=== PATIENT | female | born 1990 | race Caucasian/White ===

== ENCOUNTER 2019-02-04 00:28 | Outpatient (CLI) | payer OTHER ==
[2019-02-04 01:04] LABS: APPEARANCE,URINE CLOUDY; BILIRUBIN,URINE NEGATIVE (NEGATIVE); COLOR,URINE YELLOW; GLUCOSE, URINE NEGATIVE (NEGATIVE); KETONES,URINE NEGATIVE (NEGATIVE); LEUKOCYTE ESTERASE,URINE NEGATIVE (NEGATIVE); NITRITE,URINE NEGATIVE (NEGATIVE); PROTEIN,URINE NEGATIVE (NEGATIVE); UROBILINOGEN,URINE NEGATIVE mg/dL (<2.0)
[2019-02-04 01:18] LABS: URINE AMPHETAMINES SCREEN NEGATIVE; URINE BARBITURATES SCREEN NEGATIVE; URINE BENZODIAZEPINES SCREEN NEGATIVE; URINE COCAINE SCREEN NEGATIVE; URINE MARIJUANA (THC) SCREEN NEGATIVE; URINE METHADONE SCREEN NEGATIVE; URINE PHENCYCLIDINE SCREEN NEGATIVE
[2019-02-04] MEDS ORDERED: NALBUPHINE HCL INJ 10 MG/1 ML AMPULE ONE (01:32)
[2019-02-04] MEDS ORDERED: NALBUPHINE HCL INJ 10 MG/1 ML AMPULE IM ONE (01:35)
--- NOTE | 2019-02-04 02:13 | Non Stress Test Report ---
Non Stress Test Datetime Report Generated by CPN: 02/04/2019 02:13 DEMOGRAPHIC EGA NST: 40.2 INDICATION Indication for Study: Ordered by Provider Indication for Study (NST) Other: LC URINE RESULTS Urine Protein, NST: Negative Urine Ketones - NST: Negative Urine Glucose - NST: Negative Urine Blood - NST: Negative MONITORING Monitor Explained: Monitor Explained; Test Explained; Patient Verbalized Understanding Time on Monitor: 02/04/2019 00:48 Time off Monitor: 02/04/2019 01:29 NST Duration: 41 NST INTERVENTIONS NST Interventions: PO Hydration Physician Notified NST: Dr. Younger BABY A: [id number] BABY A Movement : Present Contraction Frequency : x2 FHR Baseline : 135 Accelerations : 15X15 Decelerations : None Variability : Moderate 6-25bpm NST Review: Meets Criteria for Reactive NST NST Review and Verified By : George GARCIAT Results: Reactive NST REPORT Report Trigger: Send Report
== END 2019-02-04 01:50 | disposition home or self-care (01) ==
LOC: LC 00:28
PROVIDERS: ATTEND Obstetrics & Gynecology
PROC: 4A1HXCZ Monitoring of Products of Conception, Cardiac Rate, External Approach (ICD-10-PCS; principal; 2019-02-04)
DX: O48.0 Post-term pregnancy (principal); Z3A.40 40 weeks gestation of pregnancy
CPT/HCPCS: 59025; 81005; 80307; J2300

== ENCOUNTER 2019-02-07 02:56 | Inpatient (IN) | payer OTHER ==
[2019-02-07] MEDS ORDERED: RINGERS SOLUTION,LACTATED 1,000 ML IV PRN (04:56)
[2019-02-07] MEDS ORDERED: PENICILLIN G-K 5 MILLION UNIT VIAL ONE ×3 (04:59→14:34)
[2019-02-07] MEDS ORDERED: PENICILLIN G POTASSIUM 5,000,000 UNIT in DEXTROSE 5%-WATER 100 ML IV ONE (05:10)
--- NOTE | 2019-02-07 05:17 | Non Stress Test Report ---
Non Stress Test Datetime Report Generated by CPN: 02/07/2019 05:16 DEMOGRAPHIC EGA NST: 40.6 INDICATION Indication for Study: Ordered by Provider MONITORING Monitor Explained: Monitor Explained; Test Explained; Patient Verbalized Understanding Time on Monitor: 02/07/2019 03:20 Time off Monitor: 02/07/2019 03:57 NST Duration: 37 NST INTERVENTIONS NST Interventions: PO Hydration; Reposition Patient Physician Notified NST: Dr. Salas BABY A: [id number] BABY A Movement : Present Contraction Frequency : 2-4 FHR Baseline : 125 Accelerations : 15X15 Decelerations : None Variability : Moderate 6-25bpm NST Review: Meets Criteria for Reactive NST NST Review and Verified By : George GARCIAT Results: Reactive NST REPORT Report Trigger: Send Report
[2019-02-07] MEDS ORDERED: RINGERS SOLUTION,LACTATED 1,000 ML IV ONE (05:30)
[2019-02-07 05:56] LABS: ABSOLUTE EOSINOPHILS # (AUTO) 0.1 10^3/uL (0.0-0.6); ABSOLUTE LYMPHOCYTES (AUTO) 1.6 10^3/uL (0.5-4.7); ABSOLUTE MONOCYTES (AUTO) 0.8 10^3/uL (0.1-1.4); ABSOLUTE NEUT (AUTO) 9.5 10^3/uL (1.7-8.2); BASOPHILS % (AUTO) 0.3 % (0-2); EOSINOPHILS % (AUTO) 0.4 % (0-6); HEMOGLOBIN 11.8 g/dL (12.0-15.5); LYMPHOCYTES % (AUTO) 13.2 % (13-45); MEAN CORPUSCULAR HEMOGLOBIN 27.3 pg (27.0-33.4); MEAN CORPUSCULAR HGB CONC 33.6 g/dL (32.0-36.0); MEAN CORPUSCULAR VOLUME 81 fl (80-97); MONOCYTES % (AUTO) 6.5 % (3-13); PLATELET COUNT 227 10^3/uL (150-450); RED BLOOD COUNT 4.32 10^6/uL (3.72-5.28); RED CELL DISTRIBUTION WIDTH 13.7 % (11.5-14.0); SEGMENTED NEUTROPHILS % (AUTO) 79.6 % (42-78); TOTAL CELLS COUNTED % (AUTO) 100 %; WHITE BLOOD COUNT 11.9 10^3/uL (4.0-10.5)
[2019-02-07] MEDS ORDERED: OXYTOCIN 10 UNIT/ML VIAL ONE (05:56)
[2019-02-07] MEDS ORDERED: LIDOCAINE 1% INJ-PF (10 MG/ML) 30 ML SDV ONE (05:56)
[2019-02-07] MEDS ORDERED: MISOPROSTOL 0.2 MG TABLET ONE (05:56)
[2019-02-07] MEDS ORDERED: OXYTOCIN/NORMAL SALINE 20 UNIT/1,000 ML RTUINJ ONE (05:56)
[2019-02-07 07:07] LABS: APPEARANCE,URINE SLIGHTLY-CLOUDY; BILIRUBIN,URINE NEGATIVE (NEGATIVE); COLOR,URINE STRAW; GLUCOSE, URINE NEGATIVE (NEGATIVE); KETONES,URINE NEGATIVE (NEGATIVE); LEUKOCYTE ESTERASE,URINE NEGATIVE (NEGATIVE); NITRITE,URINE NEGATIVE (NEGATIVE); PROTEIN,URINE NEGATIVE (NEGATIVE); URINE SPECIFIC GRAVITY 1.009; UROBILINOGEN,URINE NEGATIVE mg/dL (<2.0)
[2019-02-07 07:33] LABS: URINE AMPHETAMINES SCREEN NEGATIVE; URINE BARBITURATES SCREEN NEGATIVE; URINE BENZODIAZEPINES SCREEN NEGATIVE; URINE COCAINE SCREEN NEGATIVE; URINE MARIJUANA (THC) SCREEN NEGATIVE; URINE METHADONE SCREEN NEGATIVE; URINE PHENCYCLIDINE SCREEN NEGATIVE
[2019-02-07] MEDS ORDERED: PENICILLIN G POTASSIUM 2,500,000 UNIT in DEXTROSE 5%-WATER 50 ML IV SCH (10:00)
[2019-02-07] MEDS ORDERED: OXYTOCIN/NORMAL SALINE 20 UNIT/1,000 ML RTUINJ IV PRN (11:57)
--- NOTE | 2019-02-07 12:14 | Admission Physical ---
Datetime Report Generated by CPN: 02/07/2019 12:14 CURRENT ADMISSION Chief Complaint: Uterine Contractions Indication for Induction: Not Applicable Admit Impression : Term, Intrauterine ; Intact Membranes Admit Impression- Other: Early labor Admit Plan: Admit to Unit; Initiate Labor Augmentation Protocol ALLERGIES Medication Allergies: No Medication Allergies: No Known Allergies (02/07/2019) Latex: No Latex Allergies OBSTETRICAL HISTORY EDC: 02/01/2019 00:00 : 1 Para: 0 Gestational Diabetes: No Rh Sensitization: No Incompetent Cervix: No SAHIL: No Infertility: No ART Treatment: No Uterine Anomaly: No IUGR: No Hx Previous C/S: No Macrosomia: No Hx Loss/Stillborn: No PIH: No Hx : No Placenta Previa/Abruption: No Depression/PP Depression: Yes PTL/PROM: No Post Hemorrhage: No Current Procedures: NST Obstetrical History Comments: G1: current- NST and growth SEE RECORDS Alcohol: No Marijuana : No Cocaine: No Other Illicit Drugs: No Cigarettes: Never Smoker. [id number] MEDICAL HISTORY Diabetes: No Blood Transfusion: No Pulmonary Disease (Asthma, TB): No Breast Disease: No Hypertension: No Tile Burner Surgery: No Heart Disease: No Hosp/Surgery: Yes Autoimmune Disorder: No Anesthetic Complications: No Kidney Disease: No Abnormal Pap Smear: No Neuro/Epilepsy: No Psychiatric Disorders: No Other Medical Diseases: No Hepatitis/Liver Disease: No Significant Family History: No Varicosities/Phlebitis: No Trauma/Violence : No Thyroid Dysfunction: No Medical History Comments: Tonsillectomy 2016, appendectomy, history of depression INFECTIOUS HISTORY Gonorrhea: No Genital Herpes: No Chlamydia: No Tuberculosis: No Syphilis: No Hepatitis: No HIV/AIDS Exposure: No Rash or Viral Illness: No HPV: No PHYSICAL EXAM General: Normal HEENT: Normal Neurologic: Normal Thyroid: Normal Heart: Normal Lungs: Normal Breast: Normal Back: Normal Abdomen: Normal Genitourinary Exam: Normal Extremities: Normal DTRs: Normal Pelvic Type: Adequate Vital Signs: Reviewed; Within Normal Limits VAGINAL EXAM Dilatation: 1 Contraction Comments: irregular MEMBRANES Membranes: Intact FETUS A EGA: 40.6 Monitoring: External US FHR- Baseline: 120s Accelerations: 15X15 Decelerations: None FHR Category: Category I Admit Comment: Pt walked and her cervix changed from 1 to 3 cm. Will admit. GBS Negative. PLANS FOR LABOR AND DELIVERY Labor and Delivery: None Pain Management: Epidural Feeding Preference: Breast Circumcision: Yes INFORMED CONSENT Signature: with User ID: [email or web address]
[2019-02-07] MEDS ORDERED: LIDOCAINE 1.5%/EPINEPHRINE INJ 5 ML AMP ONE (13:16)
[2019-02-07] MEDS ORDERED: FENTANYL/BUPIVACAINE/NS/PF 300 MCG/150 ML RTUINJ EPI ONE (13:16)
[2019-02-07] MEDS ORDERED: EPHEDRINE SULFATE INJ 50 MG/1 ML AMPULE ONE (13:16)
[2019-02-07] MEDS ORDERED: BUPIVACAINE HCL 0.25 % INJ/PF (2.5 MG/1 ML) 30 ML VIAL ONE (13:16)
[2019-02-07] MEDS: PENICILLIN G-K 5 MILLION UNIT VIAL IV SCH (14:39)
[2019-02-07] MEDS ORDERED: ACETAMINOPHEN 325 MG TABLET ONE (20:33)
[2019-02-07] MEDS ORDERED: FENTANYL CITRATE INJ/PF 100 MCG/2 ML AMPUL ONE (22:41)
[2019-02-07] MEDS ORDERED: LIDOCAINE 2% INJ-PF (20 MG/ML) 10 ML AMPUL ONE ×2 (23:05→23:06)
[2019-02-07] MEDS ORDERED: PROPOFOL INJ 200 MG/20 ML VIAL IV ONE (23:06)
[2019-02-07] MEDS ORDERED: MIDAZOLAM 2 MG/2 ML INJ ONE (23:07)
[2019-02-07] MEDS ORDERED: CEFAZOLIN 2 GM/D5W RTU 2 GM/50 ML RTUPB IV ONE (23:08)
[2019-02-07] MEDS ORDERED: METHYLERGONOVINE MALEATE INJ/PF 0.2 MG/1 ML AMPULE ONE (23:23)
[2019-02-08] MEDS ORDERED: ZOLPIDEM TARTRATE 5 MG TABLET PO PRN (00:10)
[2019-02-08] MEDS ORDERED: ACETAMINOPHEN WITH CODEINE #3 TABLET PO PRN ×2 (00:10)
[2019-02-08] MEDS ORDERED: BENZOCAINE/MENTHOL AEROSOL SPRAY 56 ML TOP PRN (00:10)
[2019-02-08] MEDS ORDERED: DIPH/PERTUSS(ACELL)/TETANUS VAC/PF 0.5 ML SYR (>=10YO) IM PRN (00:10)
[2019-02-08] MEDS ORDERED: OXYTOCIN/NORMAL SALINE 20 UNIT/1,000 ML RTUINJ IV PRN (00:10)
[2019-02-08] MEDS ORDERED: DIBUCAINE 1% OINTMENT 56 GM TP PRN (00:10)
[2019-02-08] MEDS ORDERED: DOXYCYCLINE HYCLATE INJ 100 MG VIAL IV PRN (00:11)
--- NOTE | 2019-02-08 00:21 | Operative Report ---
Operative Report DATE OF SURGERY: 02/08/19 PREOPERATIVE DIAGNOSIS: Retained placenta POSTOPERATIVE DIAGNOSIS: Same OPERATION: Evacuation of retained placenta SURGEON: BRANDO KIM ANESTHESIA: Epidural TISSUE REMOVED OR ALTERED: Retained placenta (intact) COMPLICATIONS: None ESTIMATED BLOOD LOSS: 100 ml INTRAOPERATIVE FINDINGS: Retained placenta in the right fundal region PROCEDURE: Patient had a normal spontaneous vaginal delivery at 2157. Attempts to deliver the placenta with the crede maneuver and gentle traction, failed to deliver the placenta. Pitocin was also started, which did not assist in delivery. Attempts at manual evacuation was unsuccessful secondary to patient discomfort and inability to reach the fundal region in its entirety. The cord was also starting to evulse. Therefore, the patient was taken to the operating suite where the patient's epidural was redosed and she was also given light sedation. Patient was comfortable during the procedure, therefore I was able to reach all the way into the right fundal region and manually extract the placenta by c leaving a plane. The placenta was then inspected to ensure that the placenta was removed in its entirety. Patient tolerated the procedure well. Patient was given 2 g of Ancef prior to the start of the procedure. Sponge and instrument counts were correct x2. Patient was taken to the recovery room in stable condition.
[2019-02-08] MEDS ORDERED: DOXYCYCLINE HYCLATE 100 MG in DEXTROSE 5%-WATER 250 ML IV ONE (00:30)
[2019-02-08] MEDS ORDERED: MORPHINE SULFATE 10 MG/ML INJ ONE (00:44)
[2019-02-08] MEDS ORDERED: DOXYCYCLINE HYCLATE INJ 100 MG VIAL ONE (00:53)
--- NOTE | 2019-02-08 03:08 | Delivery Summary ---
Del Sum A-C Datetime Report Generated by CPN: 02/08/2019 03:07 DELIVERY PERSONNEL DELIVERY PERSONNEL: [id number] Delivery Doctor:: Etta Amaral MD Anesthesiologist:: Jayme Montoya MD PHYSICAL LABORATORY ASSISTANT:: Franck Chan CRNA Labor and Delivery Nurse:: Amrita Loja RNlaundry bag punch operator Nurse:: Aleyda Del Rosario RN Public Health Doctor:: Amrita Loja RN Nursery Nurse:: Brittnee Caldwell RN MSN Composition Teacher/INDUSTRIAL ROOF PLUMBER: Milagro Toney, LICENSED PSYCHIATRIC TECHNICIAN MATERNAL INFORMATION Delivery Anesthesia: Epidural Medications After Delivery: Pitocin Drip 20 Units/1000ml NSS; Cytotec 1000mcg Per Rectum/Vagina Estimated Blood Loss (ml): 300 Maternal Complications: Maternal Fever Provider Comments: of a viable male @ 2156 w/ an OA with nuchal cord and left compound hand presentation; APGARS 8, 9; 1st degree bilateral periurethral and 1st degree vaginal Retained placenta--del in OR (see Op Note) LABOR SUMMARY EDC: 02/01/2019 00:00 No. Babies in Womb: 1 Attempted: No Labor Anesthesia: Epidural LABOR INFORMATION Reason for Induction: Not Applicable Onset of Labor: 02/07/2019 12:17 Complete Dilatation: 02/07/2019 18:06 Oxytocin: Induction Group B Beta Strep: positive Antibiotics # of Doses: 4 Antibiotics Time of Last Dose: 1815 Name of Antibiotic Given: Penicillin Steroids Given: None Reason Steroids Not Administered: Not Applicable MEMBRANES Membranes Rupture Method: Spontaneous Rupture of Membranes: 02/07/2019 17:12 Length of Rupture (hr): 4.75 Amniotic Fluid Color: Clear Amniotic Fluid Amount: Small Amniotic Fluid Odor: Normal STAGES OF LABOR Stage 1 hr: 5 Stage 1 min: 49 Stage 2 hr: 3 Stage 2 min: 51 Stage 3 hr: 1 Stage 3 min: 53 Total Time in Labor hr: 11 Total Time in Labor min: 33 VAGINAL DELIVERY Episiotomy: None Laceration #1: Vaginal Laceration Extension #1: First Degree Laceration #2: Periurethral Laceration Extension #2: First Degree Laceration Repair: Yes Laceration Repair Note: Repaired periurethral lacs w/ 2-0 chromic and perineal w/2-0 vicryl Sponge Count Correct: N/A Sharps Count Correct: Yes CSECTION DELIVERY Primary Indication: N/A Secondary Indication: N/A CSection Incidence: N/A Labor: N/A Elective: N/A CSection Incision: N/A BABY A INFORMATION Infant Delivery Date/Time: 02/07/2019 21:57 Method of Delivery: Vaginal Born in Route : No : N/A Forceps: N/A Vacuum Extraction: N/A Shoulder Dystocia : No PRESENTATION/POSITION BABY A Presentation: Cephalic Cephalic Presentation: Vertex Vertex Position: Right Occipital Anterior Breech Presentation: N/A PLACENTA INFORMATION BABY A Placenta Delivery Time : 02/07/2019 23:50 Placenta Method of Delivery: Curettage Placenta Status: Delivered SCORES BABY A Heart Rate 1 min: >100 bpm Resp Effort 1 min: Slow, Irregular Reflex Irritability 1 min: Cough or Sneeze or Pulls Away Muscle Tone 1 min: Active Motion Color 1 min: Body Mcdermott, Extremities Blue Resuscitation Effort 1 min: Tactile Stimulation SCORE 1 MIN: 8 Heart Rate 5 min: >100 bpm Resp Effort 5 min: Good Cry Reflex Irritability 5 min: Cough or Sneeze or Pulls Away Muscle Tone 5 min: Active Motion Color 5 min: Body Mcdermott, Extremities Blue Resuscitation Effort 5 min: Tactile Stimulation SCORE 5 MIN: 9 INFANT INFORMATION BABY A Gestational Age at Delivery: 40.6 Gestational Status: Full Term- 39- 40.6 Weeks Outcome : Liveborn Condition : Stable Infant Sex: Male IDENTIFICATION BABY A Infant Verification Date/Time: 02/07/2019 22:27 ID Band Number: [id number] Mother's Name Verified: Yes Infant RN Verifying : Charo Loja RN, Charo Del Rosario RN WEIGHT/LENGTH BABY A Birthweight (gm): 3251 Weight (lb): 7 Infant Weight (oz): 3 Infant Length (in): 20.00 Length (cm): 50.80 CORD INFORMATION BABY A No. Cord Vessels: 3 Nuchal Cord : Around Neck x1, Loose Nuchal Cord- Other: left compound hand Cord Blood Taken: Yes-For Storage (Mom's Blood type +) Suction: None; Mouth ASSESSMENT BABY A Infant Complications: Multiple Variable Decels Physical Findings at Delivery: Caput Succedaneum Respirations: Appears Normal Skin to Skin: Yes Pet Crematory Worker/ALS Called : No Infant Care By: A. Killinger RN Transferred To: Remains with Mother BABY B INFORMATION : N/A SIGNATURES Signature: with User ID: [email or web address]
[2019-02-08] MEDS ORDERED: IBUPROFEN 800 MG TABLET PO SCH (06:00)
--- NOTE | 2019-02-08 08:40 | PDOC PROGRESS REPORT ---
Subjective-OB Progress Note for:: 02/08/19 Subjective: reports bleeding slowing, pain controlled with current meds. denies needs. Physical Exam (OB) Vital Signs: Intake & Output 02/07/19 02/08/19 02/09/19 06:59 06:59 06:59 Weight 86.3 kg - Abdomen Fundal Description: Firm Fundal Height: u/u - u/2 - Abdominal Distension: No distension Tenderness: Nontender - Extremities Lower extremities: Estrella's sign - neg Calf: Normal, Nontender Objective-Diagnostic Laboratory: 02/07/19 05:20 Assessment and Plan(PN) - Assessment and Plan (1) Normal vaginal delivery Is this a current diagnosis for this admission?: Yes - Time Spent with Patient Time with patient: Less than 15 minutes Medications reviewed and adjusted accordingly: Yes - Disposition Anticipated Discharge: Home Within: within 24 hours
[2019-02-08] MEDS ORDERED: SENNOSIDES/DOCUSATE 8.6-50 MG 1 EACH TABLET ONE (09:36)
[2019-02-08] MEDS ORDERED: DOCUSATE SODIUM 100 MG CAPSULE ONE (09:36)
[2019-02-08] MEDS ORDERED: PRENATAL VITAMIN W DHA CAPSULE PO ONE (09:36)
[2019-02-08] MEDS ORDERED: FERROUS SULFATE 325 MG TABLET PO ONE (09:36)
[2019-02-08] MEDS ORDERED: SENNOSIDES/DOCUSATE 8.6-50 MG 1 EACH TABLET PO SCH (10:00)
[2019-02-08] MEDS ORDERED: DOCUSATE SODIUM 100 MG CAPSULE PO SCH (10:00)
[2019-02-08] MEDS ORDERED: PRENATAL VITAMIN W DHA CAPSULE PO SCH (10:00)
[2019-02-08] MEDS ORDERED: FERROUS SULFATE 325 MG TABLET PO SCH (10:00)
[2019-02-08] MEDS ORDERED: IBUPROFEN 800 MG TABLET ONE (13:58)
[2019-02-08] MEDS: PENICILLIN G-K 5 MILLION UNIT VIAL IV SCH ×2 (14:34→14:35)
[2019-02-08] MEDS: DOXYCYCLINE HYCLATE 100 MG in DEXTROSE 5%-WATER 250 ML IV SCH ×2 (14:36→22:20)
[2019-02-08] MEDS: DOCUSATE SODIUM 100 MG CAPSULE PO SCH (18:22)
[2019-02-08] MEDS: FERROUS SULFATE 325 MG TABLET PO SCH (18:23)
[2019-02-08] MEDS: IBUPROFEN 800 MG TABLET PO SCH (21:10)
[2019-02-09] MEDS: IBUPROFEN 800 MG TABLET PO SCH ×2 (05:22→15:42)
[2019-02-09 08:13] LABS: HEMATOCRIT 26.1 % (36.0-47.0); MEAN CORPUSCULAR HEMOGLOBIN 27.9 pg (27.0-33.4); MEAN CORPUSCULAR HGB CONC 34.1 g/dL (32.0-36.0); MEAN CORPUSCULAR VOLUME 82 fl (80-97); PLATELET COUNT 182 10^3/uL (150-450); RED BLOOD COUNT 3.19 10^6/uL (3.72-5.28); RED CELL DISTRIBUTION WIDTH 13.6 % (11.5-14.0); WHITE BLOOD COUNT 14.8 10^3/uL (4.0-10.5)
[2019-02-09 08:15] LABS: HEMOGLOBIN 8.9 g/dL (12.0-15.5)
[2019-02-09 09:06] VITALS: BP 127/82
[2019-02-09] MEDS: FERROUS SULFATE 325 MG TABLET PO SCH ×2 (09:39→18:29)
[2019-02-09] MEDS: DOCUSATE SODIUM 100 MG CAPSULE PO SCH ×2 (09:39→18:29)
[2019-02-09] MEDS ORDERED: SENNOSIDES/DOCUSATE 8.6-50 MG 1 EACH TABLET PO SCH (10:00)
[2019-02-09] MEDS ORDERED: PRENATAL VITAMIN W DHA CAPSULE PO SCH (10:00)
--- NOTE | 2019-02-09 10:50 | PDOC DISCHARGE SUMMARY ---
Final Diagnosis Discharge Date: 02/09/19 - Final Diagnosis (1) Normal vaginal delivery Is this a current diagnosis for this admission?: Yes (2) S/P dilatation and curettage Is this a current diagnosis for this admission?: Yes Discharge Data - Discharge Medication Prescriptions: Acetaminophen [Tylenol] 650 mg PO Q6HP PRN #60 capsule PRN Reason: Ibuprofen [Motrin 800 mg Tablet] 800 mg PO Q8HP PRN #60 tablet PRN Reason: Home Medications: Vit,Calc76/Iron/Folic [Pnv 29-1 Tablet] 1 tab PO DAILY 02/04/19 Acetaminophen [Tylenol] 650 mg PO Q6HP PRN #60 capsule 02/09/19 Ibuprofen [Motrin 800 mg Tablet] 800 mg PO Q8HP PRN #60 tablet 02/09/19 Procedures: NST Intrapartum Procedure(s): Spontaneous Vaginal Delivery Complication(s): Laceration-Vaginal Laceration-Degree: 1st - Diagnosis Test Laboratory: Temp Pulse Resp BP Pulse Ox 98.1 F 76 16 127/82 H 97 02/09/19 07:40 02/09/19 07:40 02/09/19 07:40 02/09/19 07:40 02/09/19 07:40 02/07/19 02/07/19 02/09/19 03:10 05:20 07:25 RBC 4.32 3.19 L Hgb 11.8 L 8.9 L D Hct 35.0 L 26.1 L Urine Opiates Screen NEGATIVE - Discharge information/Instructions Discharge Activity: Balance Activity w/Rest, Pelvic Rest Discharge Diet: Regular Disposition: HOME, SELF-CARE Follow up with: [facility] in: 4, Weeks
[2019-02-09] MEDS: DOXYCYCLINE HYCLATE 100 MG in DEXTROSE 5%-WATER 250 ML IV SCH (15:35)
== END 2019-02-09 19:11 | disposition home or self-care (01) | DRG 806 ==
LOC: LC 02:56 → LR 04:55 → UNDODISIN 10:41 → 2S 02-08 13:39
PROVIDERS: ADMIT Obstetrics & Gynecology Gynecology; ATTEND Obstetrics & Gynecology
PROC: 10E0XZZ Delivery of Products of Conception, External Approach (ICD-10-PCS; principal; 2019-02-07)
PROC: 0UQMXZZ Repair Vulva, External Approach (ICD-10-PCS; 2019-02-07)
PROC: 0HQ9XZZ Repair Perineum Skin, External Approach (ICD-10-PCS; 2019-02-07)
PROC: 10D17Z9 Manual Extraction of Products of Conception, Retained, Via Natural or Artificial Opening (ICD-10-PCS; 2019-02-08)
DX: O99.824 Streptococcus B carrier state complicating childbirth (principal); O75.2 Pyrexia during labor, not elsewhere classified; Z37.0 Single live birth; O73.0 Retained placenta without hemorrhage; Z3A.40 40 weeks gestation of pregnancy; O69.81X0 Labor and delivery complicated by cord around neck, without compression, not applicable or unspecified; O32.6XX0 Maternal care for compound presentation, not applicable or unspecified; O70.0 First degree perineal laceration during delivery; O71.82 Other specified trauma to perineum and vulva; O76 Abnormality in fetal heart rate and rhythm complicating labor and delivery
CPT/HCPCS: 36415; 80307; 81005; 85025; 85027; 86592; 86850; 86900; 86901; 88307; 94760; J0690; J2210; J2250; J2270; J2540; J2590; J2704; J3010; J3490; J7060